=== PATIENT | male | born 1970 ===

== ENCOUNTER 2016-06-25 13:11 | Emergency (ER) | payer OTHER ==
[2016-06-25 14:05] VITALS: BP 124/90; PULSE 62; RESP 16; TEMP 96.8; O2SAT 97
[2016-06-25] MEDS ORDERED: TDAP ADULT 0.5 ML INJ (BOOSTRIX) IM ONE (14:53)
[2016-06-25] MEDS ORDERED: AMOXICILLIN/CLAVULANATE POT 875/125 MG TAB PO ONE (14:53)
--- NOTE | 2016-06-25 14:53 | UCPHY ---
H & P Time Seen by Provider: 06/25/16 14:41 Patient Type: New HPI/ROS: CHIEF COMPLAINT: Left middle digit dog bite HISTORY OF PRESENT ILLNESS: 46-year-old immunocompetent male with out-of-date tetanus sustained dog bite to his left middle digit middle phalanx last evening from his pit bull dog. He has pain to the middle phalanx. No discoloration or discharge. No sensory or motor deficit. PHYSICAL EXAM (Prior to examination, patient consented to physical exam, hands were washed and my usual and customary physical exam procedures followed) 1) GENERAL: Well-developed, well-nourished, alert and oriented. . 2) HEAD: Normocephalic 3) HEENT: sclera anicteric 4) LUNGS: Breathing comfortably. 5) SKIN: 1.5 cm laceration/bite to the left middle digit dorsal aspect middle phalanx. 6) MUSCULOSKELETAL: able to hold flexion and extension against resistance at the MCP, PIP, D IP with no deficits. Negative kanavel. No foul smell no discharge. 7) NEUROLOGIC: Full sensation and two-point discrimination intact distally Smoking Status: Never smoked Constitutional: Initial Vital Signs Temperature (C) 36 C 06/25/16 14:01 Heart Rate 62 06/25/16 14:01 Respiratory Rate 16 06/25/16 14:01 Blood Pressure 124/90 H 06/25/16 14:01 O2 Sat (%) 97 06/25/16 14:01 O2 Delivery Mode Room Air Allergies/Adverse Reactions: No Known Allergies Allergy (Unverified 06/25/16 14:05) Home Medications: Medication Instructions Recorded Amoxicillin/Clavulanate Pot 875 mg PO BID #14 tab 06/25/16 [Augmentin 875 mg tab] Cambia 06/25/16 Eletriptan HBr 06/25/16 MDM/Departure - MDM Diagnostics: Xray of the left finger interpreted by myself: no definitive acute osseous abnormality , no radiopaque foreign body Procedures: Digital nerve block 1% plain lidocaine. ED Course/Re-evaluation: This patient's tetanus has been updated. His wound has been irrigated after digital nerve block. He is started on Augmentin. Will be allowed to heal via secondary intention. He has no evidence of yudith extensor injury. - Depart Disposition: Home, Routine, Self-Care Clinical Impression: Dog bite of left hand Qualifiers: Encounter type: initial encounter Qualifier Code: (S61.452A) Open bite of left hand, initial encounter Condition: Good Instructions: Animal Bite (ED) Additional Instructions: Return to the ER if you develop redness, swelling, discharge, warmth to the wound, red streaks going up your arm, or any other symptoms that concern you. Prescriptions: Amoxicillin/Clavulanate Pot [Augmentin 875 mg tab] 875 mg PO BID #14 tab Referrals: Sara Wong MD [Primary Care Provider] - 1-2 days without fail - PQRS PQRS Measurement: Not applicable
--- NOTE | 2016-06-25 15:12 | DX ---
Left middle finger - 3 views Indication: Dog bite Comparison: None Findings: The bones are anatomically aligned. No acute fracture or retained foreign body. Minimal sub cutaneous gas and soft tissue swelling is present along the base of the finger. Impression: No fracture or foreign body.
== END 2016-06-25 15:16 | disposition home or self-care (01) ==
LOC: CED 13:11
PROC: 3E10X8Z Irrigation of Skin and Mucous Membranes using Irrigating Substance (ICD-10-PCS; principal; 2016-06-25)
DX: S61.253A Open bite of left middle finger without damage to nail, initial encounter (principal); W54.0XXA Bitten by dog, initial encounter
CPT/HCPCS: 73140-PO; G0463-PO